=== PATIENT | female | born 1970 | race Caucasian/White ===

== ENCOUNTER 2017-07-01 16:38 | Emergency (ER) | payer MEDICAID ==
[~2017-07-01] VITALS: Ht 162.6 cm; Wt 84.9 kg
[~2017-07-01 16:38] MED LIST: HALO5TAB PO; HYDR-565 PO; IBUP-1985 PO; LORA1TAB PO; OLAN20TA3 PO
[2017-07-01 16:51] VITALS: BP 162/89
[2017-07-01] MEDS ORDERED: AZI25OT PO (17:45)
== END 2017-07-01 17:53 | disposition home or self-care (01) ==
LOC: ER 16:39
DX: J20.9 Acute bronchitis, unspecified (principal); J06.9 Acute upper respiratory infection, unspecified; H92.11 Otorrhea, right ear; J45.909 Unspecified asthma, uncomplicated; G89.29 Other chronic pain; K21.9 Gastro-esophageal reflux disease without esophagitis; Z90.710 Acquired absence of both cervix and uterus; Z90.49 Acquired absence of other specified parts of digestive tract; Z88.5 Allergy status to narcotic agent; Z88.8 Allergy status to other drugs, medicaments and biological substances; Z79.899 Other long term (current) drug therapy
CPT/HCPCS: 99283

== ENCOUNTER 2017-09-30 15:19 | Emergency (ER) | payer MEDICAID ==
[~2017-09-30] VITALS: Ht 160 cm; Wt 84.0 kg
[2017-09-30 15:33] VITALS: BP 168/88
[2017-09-30] MEDS ORDERED: HYDROmorphone 1 mg/ml syringe IM ONE (15:40)
[2017-09-30] MEDS ORDERED: ondansetron 4mg rapidly disintigrating tab PO ONE (15:40)
== END 2017-09-30 16:50 | disposition home or self-care (01) ==
LOC: ER 15:19
DX: M54.5 Low back pain (principal); K21.9 Gastro-esophageal reflux disease without esophagitis; J45.909 Unspecified asthma, uncomplicated; G89.29 Other chronic pain; Z90.49 Acquired absence of other specified parts of digestive tract; Z90.710 Acquired absence of both cervix and uterus; Z88.5 Allergy status to narcotic agent; Z79.899 Other long term (current) drug therapy
CPT/HCPCS: 96372; 99284; J1170

== ENCOUNTER 2018-01-18 13:39 | Emergency (ER) | payer MEDICAID ==
[~2018-01-18] VITALS: Ht 165.1 cm; Wt 87.9 kg
[~2018-01-18 13:39] MED LIST changes: +HYDR-4353 PO; -HYDR-565 PO
[2018-01-18 13:44] VITALS: BP 159/79
[2018-01-18] MEDS ORDERED: SULF1TAB49 PO (15:02)
[2018-01-18] MEDS ORDERED: CEPH500C5 PO (15:02)
[2018-01-18] MEDS ORDERED: HYDROcodone/acetaminophen 10/325mg tab PO ONE (15:15)
[2018-01-18] MEDS ORDERED: HYDR-4353 PO (17:27)
== END 2018-01-18 15:35 | disposition home or self-care (01) ==
LOC: ER 13:39
DX: L03.116 Cellulitis of left lower limb (principal); L03.115 Cellulitis of right lower limb; F32.9 Major depressive disorder, single episode, unspecified; J45.909 Unspecified asthma, uncomplicated; K21.9 Gastro-esophageal reflux disease without esophagitis; G89.29 Other chronic pain; G62.9 Polyneuropathy, unspecified; Z88.8 Allergy status to other drugs, medicaments and biological substances; Z88.6 Allergy status to analgesic agent; Z90.49 Acquired absence of other specified parts of digestive tract; Z90.710 Acquired absence of both cervix and uterus
CPT/HCPCS: 99284

== ENCOUNTER 2018-01-18 15:50 | Emergency (ER) | payer MEDICAID ==
[~2018-01-18] VITALS: Ht 162.6 cm; Wt 88.0 kg
[~2018-01-18 15:50] MED LIST changes: +CEPH500C5 PO; +SULF1TAB49 PO
[2018-01-18] MEDS ORDERED: LIDOcaine 1.5% w/epinephrine 1:200,000 5ml ampul IJ ONE (16:30)
[2018-01-18] MEDS ORDERED: sulfamethoxazole/trimethoprim DS (800/160mg) tablet PO ONE (17:10)
[2018-01-18] MEDS ORDERED: HYDROcodone/acetaminophen 10/325mg tab PO ONE (17:10)
[2018-01-18] MEDS ORDERED: HYDR-4353 PO (17:27)
== END 2018-01-18 17:37 | disposition home or self-care (01) ==
LOC: ER 15:51
DX: L03.032 Cellulitis of left toe (principal); L03.031 Cellulitis of right toe; F20.9 Schizophrenia, unspecified; J45.909 Unspecified asthma, uncomplicated; K21.9 Gastro-esophageal reflux disease without esophagitis; G89.29 Other chronic pain; F31.9 Bipolar disorder, unspecified; G62.9 Polyneuropathy, unspecified; Z88.6 Allergy status to analgesic agent; Z88.8 Allergy status to other drugs, medicaments and biological substances; Z90.49 Acquired absence of other specified parts of digestive tract; Z90.710 Acquired absence of both cervix and uterus; Z56.0 Unemployment, unspecified; Z60.2 Problems related to living alone; Z59.0 Homelessness
CPT/HCPCS: 10061; 99284; J3490

== ENCOUNTER 2018-01-21 13:40 | Emergency (ER) | payer MEDICAID ==
[~2018-01-21] VITALS: Ht 162.6 cm; Wt 81.8 kg
[2018-01-21 14:04] VITALS: BP 172/62
== END 2018-01-21 15:43 | disposition home or self-care (01) ==
LOC: ER 13:41
DX: F32.9 Major depressive disorder, single episode, unspecified (principal); J45.909 Unspecified asthma, uncomplicated; K21.9 Gastro-esophageal reflux disease without esophagitis; G89.29 Other chronic pain; F20.9 Schizophrenia, unspecified; G62.9 Polyneuropathy, unspecified; Z59.0 Homelessness; Z90.49 Acquired absence of other specified parts of digestive tract; Z90.710 Acquired absence of both cervix and uterus; Z88.6 Allergy status to analgesic agent; Z88.8 Allergy status to other drugs, medicaments and biological substances; Z79.899 Other long term (current) drug therapy
CPT/HCPCS: 99284

== ENCOUNTER 2018-03-16 07:56 | Emergency (ER) | payer MEDICARE, MEDICAID ==
[~2018-03-16] VITALS: Ht 162.6 cm; Wt 84.0 kg
[~2018-03-16 07:56] MED LIST changes: -SULF1TAB49 PO
[2018-03-16 08:41] LABS: CLARITY,URINE CLEAR (Clear); COLOR,URINE YELLOW (Yellow); GLUCOSE, URINE NEGATIVE (Neg); KETONES,URINE NEGATIVE (Neg); LEUKOCYTE ESTERASE ,URINE NEGATIVE (Neg); NITRITES, URINE NEGATIVE (Neg); OCCULT BLOOD,URINE NEGATIVE (Neg); PROTEIN,URINE NEGATIVE (Neg); UROBILINOGEN,URINE 0.2 E.U/dL (0.2-1.0)
[2018-03-16 08:42] LABS: UA COLLECTION TYPE CLN CATCH MIDSTREAM
[2018-03-16 09:15] LABS: BASOPHILS # (AUTO) 0.1 X10'3 (0-0.2); BASOPHILS % (AUTO) 0.4 % (0-1); EOSINOPHILS % (AUTO) 0.2 % (0-6); HEMATOCRIT 29.6 % (35.0-45.0); HEMOGLOBIN 9.9 g/dl (12.0-16.0); LYMPHOCYTES # (AUTO) 3.6 X10'3 (1.1-4.8); LYMPHOCYTES % (AUTO) 19.4 % (21-51); MEAN CORPUSCULAR HEMOGLOBIN 29.6 PG (27.0-31.0); MEAN CORPUSCULAR HGB CONC 33.6 % (33.0-36.5); MEAN CORPUSCULAR VOLUME 88.2 FL (78-98); MEAN PLATELET VOLUME 7.3 FL (7.4-10.4); MONOCYTES # (AUTO) 0.8 X10'3 (0-0.9); MONOCYTES % (AUTO) 4.1 % (2-12); NEUTROPHILS % (AUTO) 75.9 % (42-75); PLATELET COUNT 420 X10'3 (140-440); RED BLOOD COUNT 3.36 X10'6 (4.20-5.60); RED CELL DISTRIBUTION WIDTH 13.7 % (11.5-14.5); WHITE BLOOD COUNT 18.5 X10'3 (4.5-11.0)
[2018-03-16 09:34] LABS: ALANINE AMINOTRANSFERASE 10 U/L (12-78); ALBUMIN/GLOBULIN RATIO 0.9 (1.1-1.5); ALKALINE PHOSPHATASE 77 IU/L (46-116); ANION GAP 6 (8-16); ASPARTATE AMINO TRANSFERASE 11 U/L (10-37); BILIRUBIN,TOTAL 0.3 MG/DL (0.1-1.0); BLOOD UREA NITROGEN 9 MG/DL (7-18); BUN/CREATININE RATIO 10.5 (6.6-38.0); CALCIUM 8.9 MG/DL (8.5-10.1); CHLORIDE 100 MMOL/L (99-107); CREATININE 0.86 MG/DL (0.40-0.90); GLUCOSE 85 MG/DL (70-104); POTASSIUM 3.5 MMOL/L (3.5-5.1); SODIUM 136 MMOL/L (135-145); TOTAL CARBON DIOXIDE 30.2 MMOL/L (24-32); TOTAL PROTEIN 6.5 G/DL (6.4-8.2); eGFR 70 ML/MIN
[2018-03-16] MEDS ORDERED: azithromycin 250mg tablet PO ONE (09:40)
[2018-03-16] MEDS ORDERED: CefTRIAXone 1000mg IM Kit (w/lidocaine diluent) IM ONE (09:40)
[2018-03-16] MEDS ORDERED: CEFD300C3 PO (09:58)
[2018-03-16] MEDS ORDERED: AZIT250T83 PO (09:58)
[2018-03-16] MEDS ORDERED: ALBU18HF2 INH (09:58)
[2018-03-16 10:15] VITALS: BP 145/78
== END 2018-03-16 10:17 | disposition home or self-care (01) ==
LOC: ER 07:57
DX: J18.9 Pneumonia, unspecified organism (principal); R91.1 Solitary pulmonary nodule; F17.200 Nicotine dependence, unspecified, uncomplicated; J45.909 Unspecified asthma, uncomplicated; K21.9 Gastro-esophageal reflux disease without esophagitis; G89.29 Other chronic pain; G62.9 Polyneuropathy, unspecified; Z90.49 Acquired absence of other specified parts of digestive tract; Z90.710 Acquired absence of both cervix and uterus; Z88.5 Allergy status to narcotic agent; Z88.8 Allergy status to other drugs, medicaments and biological substances; Z79.2 Long term (current) use of antibiotics; Z79.899 Other long term (current) drug therapy; Z56.0 Unemployment, unspecified; Z60.2 Problems related to living alone; Z59.0 Homelessness
CPT/HCPCS: 36415; 71045; 71250; 80053; 81003; 83880; 85025; 96372; 99284; J0696

== ENCOUNTER 2021-11-14 11:03 | Emergency (ER) | payer BC, MEDICAID ==
[~2021-11-14] VITALS: Ht 162.6 cm; Wt 100.0 kg
[~2021-11-14 11:03] MED LIST changes: +ALBU18HF2 INH; -CEPH500C5 PO
[2021-11-14] MEDS ORDERED: dexamethasone sod phosphate 10mg/ml inj IV STA (11:16)
[2021-11-14] MEDS ORDERED: normal saline 1000ML IV soln IVB ONE ×2 (11:20)
[2021-11-14] MEDS ORDERED: LIDOcaine Viscous 15ml cup MM ONE (11:20)
[2021-11-14] MEDS ORDERED: CefTRIAXone 2gm/D5W 50ml BAG 50 ML IV ONE (11:20)
[2021-11-14] MEDS ORDERED: ketorolac trometh. 30mg/ml inj. IV ONE (11:20)
[2021-11-14] MEDS ORDERED: ondansetron/PF 4mg/2ml inj IV ONE (11:20)
[2021-11-14 11:59] LABS: BASOPHILS # (AUTO) 0.1 X10'3 (0-0.2); BASOPHILS % (AUTO) 0.2 % (0-1); EOSINOPHILS # (AUTO) 0.1 X10'3 (0-0.9); EOSINOPHILS % (AUTO) 0.2 % (0-6); HEMATOCRIT 38.7 % (35.0-45.0); HEMOGLOBIN 13.3 g/dl (12.0-16.0); LYMPHOCYTES # (AUTO) 1.8 X10'3 (1.1-4.8); LYMPHOCYTES % (AUTO) 7.4 % (21-51); MEAN CORPUSCULAR HEMOGLOBIN 30.1 PG (27.0-31.0); MEAN CORPUSCULAR HGB CONC 34.5 g/dL (33.0-36.5); MEAN CORPUSCULAR VOLUME 87.2 FL (78-98); MEAN PLATELET VOLUME 6.5 FL (7.4-10.4); MONOCYTES # (AUTO) 1.6 X10'3 (0-0.9); MONOCYTES % (AUTO) 6.6 % (2-12); NEUTROPHILS # (AUTO) 21.1 X10'3 (1.8-7.7); NEUTROPHILS % (AUTO) 85.6 % (42-75); PLATELET COUNT 412 X10'3 (140-440); RED BLOOD COUNT 4.43 X10'6 (4.20-5.60); RED CELL DISTRIBUTION WIDTH 13.2 % (11.5-14.5); WHITE BLOOD COUNT 24.7 X10'3 (4.5-11.0)
[2021-11-14 12:22] LABS: ALANINE AMINOTRANSFERASE 12 U/L (12-78); ALBUMIN 3.2 G/DL (3.4-5.0); ALBUMIN/GLOBULIN RATIO 0.7 (1.1-1.5); ALKALINE PHOSPHATASE 134 IU/L (46-116); ANION GAP 11 (8-16); ASPARTATE AMINO TRANSFERASE 20 U/L (10-37); BILIRUBIN,TOTAL 0.6 MG/DL (0.1-1.0); BLOOD UREA NITROGEN 8 MG/DL (7-18); BUN/CREATININE RATIO 10.4 (6.6-38.0); CALCIUM 8.5 MG/DL (8.5-10.1); CHLORIDE 102 MMOL/L (99-107); CREATININE 0.77 MG/DL (0.40-0.90); GLUCOSE 150 MG/DL (70-104); POTASSIUM 3.6 MMOL/L (3.5-5.1); SODIUM 141 MMOL/L (135-145); TOTAL CARBON DIOXIDE 28.5 MMOL/L (24-32); TOTAL PROTEIN 7.9 G/DL (6.4-8.2); eGFR 79 ML/MIN
[2021-11-14 12:32] VITALS: BP 148/76
[2021-11-14] MEDS ORDERED: METH4TAB3 PO (12:45)
[2021-11-14] MEDS ORDERED: HYDR118S10 PO (12:45)
[2021-11-14] MEDS ORDERED: CEPH250T PO (12:45)
[2021-11-14] MEDS ORDERED: HYDR-3965 PO (13:57)
== END 2021-11-14 13:36 | disposition home or self-care (01) ==
LOC: ER 11:03
DX: J02.0 Streptococcal pharyngitis (principal); Z20.822 Contact with and (suspected) exposure to COVID-19; J45.909 Unspecified asthma, uncomplicated; K21.9 Gastro-esophageal reflux disease without esophagitis; G89.29 Other chronic pain; M54.50 Low back pain, unspecified; F31.9 Bipolar disorder, unspecified; Z88.5 Allergy status to narcotic agent; Z88.8 Allergy status to other drugs, medicaments and biological substances; Z90.49 Acquired absence of other specified parts of digestive tract; Z90.710 Acquired absence of both cervix and uterus; Z59.00 Homelessness unspecified; Z56.0 Unemployment, unspecified
CPT/HCPCS: 36415; 80053; 85025; 87635; 87880; 96365; 96375; 99284; C9803; J0696; J1100; J1885; J2405; J7030